=== PATIENT | male | born 1965 | race African-American/Black ===

== ENCOUNTER 2016-11-10 10:36 | Inpatient (IN) | payer BC ==
[2016-11-10 11:44] VITALS: BMI 30.7
--- NOTE | 2016-11-10 15:30 | HP ---
CIWA Score - CIWA Score Nausea/Vomitin Muscle Tremors: 3 Anxiety: 3 Agitation: 3 Paroxysmal Sweats: 2 Orientation: 0-Oriented Tacttile Disturbances: 2-Mild Itch/Numbness/Burn Auditory Disturbances: 2-Mild Harshness/Frighten Visual Disturbances: 2-Mild Sensitivity Headache: 2-Mild CIWA-Ar Total Score: 22 Admission ROS [facility] - HPI Chief Complaint: I NEED HELP TO STOP DRINKING ALCOHOL,COCAINE,HEROINE DEPENDENCE Allergies/Adverse Reactions: Allergies Allergy/AdvReac Type Severity Reaction Status Date / Time No Known Allergies Allergy Verified 11/10/16 13:06 History of Present Illness: THIS 51 YEARS OLD MALE WITH ALCOHOL AND COCAINE DEPENDENCE WITH HEROIN DEPENDENCE,WITHDRAWAL SYMPTOM,LAST DETOX 07/12/16 TO 07/16/16 S/P RIGHT HIP REPLACEMENT IN 2010 OSTEOMYELITIS OF RIGHT HIP SINCE 2013 CANE AMBULATION FOLLOW UP WITH [facility] PERIOD OF SOBRIETY 2 YEARS NEEDED HELP TO CLEAN UP BEFORE SURGERY Exam Limitations: No Limitations - Ebola screening Have you traveled outside of the country in the last 21 days: No (N) Have you had contact with anyone from an Ebola affected area: No Have you been sick,other than usual withdrawal symptoms: No Do you have a fever: No - Review of Systems Constitutional: Chills, Loss of Appetite, Malaise, Night Sweats, Changes in sleep, Weakness EENT: reports: Nose Congestion Respiratory: reports: No Symptoms reported Cardiac: reports: No Symptoms Reported GI: reports: Nausea, Poor Appetite, Abdominal cramping : reports: No Symptoms Reported Musculoskeletal: reports: Back Pain, Joint Pain, Muscle Pain Neuro: reports: Tremors Endocrine: reports: No Symptoms Reported Hematology: reports: No Symptoms Reported Psychiatric: reports: Depressed (INSOMNIA) Patient History - Patient Medical History Hx Anemia: Yes (USED TO TAKE IRON PILL) Hx Asthma: No Hx Chronic Obstructive Pulmonary Disease (COPD): No Hx Cancer: No Hx Cardiac Disorders: No Hx Congestive Heart Failure: No Hx Hypertension: Yes (NON COMPLIACE) Hx Hypercholesterolemia: No Hx Pacemaker: No HX Cerebrovascular Accident: No Hx Seizures: No Hx Dementia: No Hx Diabetes: No Hx Gastrointestinal Disorders: Yes (Acid reflux) Hx Liver Disease: No Hx Genitourinary Disorders: No Hx Sexually Transmitted Disorders: No Hx Renal Disease (ESRD): No Hx Thyroid Disease: No Hx Human Immunodeficiency Virus (HIV): No Hx Hepatitis C: No Hx Depression: Yes (INSOMNIA) Hx Suicide Attempt: No Hx Bipolar Disorder: No Hx Schizophrenia: No Other Medical History: NO SUICIDAL,NO HOMICIDAL.S/P RIGHT HIP REPLACEMENT, OSTEOMYELITIS,CANE AMBUL - Patient Surgical History Past Surgical History: Yes Hx Neurologic Surgery: No Hx Cataract Extraction: No Hx Cardiac Surgery: No Hx Lung Surgery: No Hx Breast Surgery: No Hx Breast Biopsy: No Hx Abdominal Surgery: No Hx Appendectomy: No Hx Cholecystectomy: No Hx Genitourinary Surgery: No Hx Section: No Hx Orthopedic Surgery: Yes (right hip replacement 2011, revision 2013, chronic infection) Other Surgical History: CHRONIC DRANING WOUND RT. HIP Anesthesia Reaction: No - PPD History Previous Implant?: Yes Documented Results: Negative w/o proof Date: 09/06/15 Results: 0 mm PPD to be Administered?: Yes - Smoking Cessation Smoking history: Current every day smoker Have you smoked in the past 12 months: Yes Aproximately how many cigarettes per day: 20 Hx Chewing Tobacco Use: No Initiated information on smoking cessation: Yes 'Breaking Loose' booklet given: 11/10/16 - Substance & Tx. History Hx Alcohol Use: Yes Hx Substance Use: Yes Substance Use Type: Alcohol, Cocaine, Heroin Hx Substance Use Treatment: Yes ([facility] 07/12/16 TO 07/16/16) - Substances Abused Alcohol Route: Oral Frequency: Daily Amount used: 2 pints liquor, (2) 6 pack of 12oz Beer Age of first use: 15 Date of Last Use: 11/09/16 Heroin Route: Smoking Frequency: Daily Amount used: $100 Age of first use: 15 Date of Last Use: 11/09/16 Cocaine Route: Smoking Frequency: Daily Amount used: 20$ Age of first use: 15 Date of Last Use: 11/10/16 Family Disease History - Family Disease History Family Disease History: Heart Disease: Mother (HTN,ALCOHOL,), Sister ( HTN,ALCOHOL), [place]: Mother Admission Physical Exam [facility] - Vital Signs Vital Signs: Vital Signs - 24 hr 11/10/16 11:42 Temperature 97.6 F Pulse Rate 77 Respiratory 20 Rate Blood Pressure 109/77 - Physical General Appearance: Yes: Moderate Distress, Tremorous, Irritable, Sweating, Anxious HEENTM: Yes: Nasal Congestion Respiratory: Yes: Lungs Clear Neck: Yes: Within Normal Limits Breast: Yes: Within Normal Limits Abdominal: Yes: Within Normal Limits, Normal Bowel Sounds, Non Tender, Flat, Soft Genitourinary: Yes: Within Normal Limits Back: Yes: Muscle Spasm Extremities: Yes: Tremors Neurological: Yes: big data analytics lead II-XII NML intact, Fully Oriented, Alert, Motor Strength 5/5 Integumentary: Yes: Dry, Other (DRAINAGE FROMRIGHT HIP) Lymphatic: Yes: Within Normal Limits - Diagnostic (1) Open wound of right hip and thigh Current Visit: No Status: Acute Qualifiers: Encounter type: subsequent encounter Qualified Code(s): S71.001D - Unspecified open wound, right hip, subsequent encounter; S71.101D - Unspecified open wound, right thigh, subsequent encounter (2) Opioid dependence with withdrawal Current Visit: No Status: Acute (3) Alcohol dependence with uncomplicated withdrawal Current Visit: No Status: Chronic (4) Chronic right hip pain Current Visit: No Status: Chronic (5) Cocaine dependence Current Visit: No Status: Chronic Qualifiers: Substance use status: uncomplicated Qualified Code(s): F14.20 - Cocaine dependence, uncomplicated (6) HTN (hypertension) Current Visit: No Status: Chronic Qualifiers: Hypertension type: essential hypertension Qualified Code(s): I10 - Essential (primary) hypertension (7) Nicotine dependence Current Visit: No Status: Chronic Qualifiers: Nicotine product type: cigarettes Substance use status: uncomplicated Qualified Code(s): F17.210 - Nicotine dependence, cigarettes, uncomplicated (8) Status post right hip replacement Current Visit: No Status: Chronic (9) Depression Current Visit: Yes Status: Acute (10) Use of cane as ambulatory aid Current Visit: Yes Status: Acute Cleared for Admission [facility] - Detox or Rehab [facility] Level of Care: Medically Managed Detox Regimen/Protocol: Methadone/Librium [facility] Breath Alcohol Content Breath Alcohol Content: 0 Urine Drug Screen - Results Drug Screen Negative: No Urine Drug Screen Results: LLUVIA-Cocaine, OPI-Opiates
[2016-11-10] MEDS ORDERED: NICOTINE POLACRILEX 2 MG GUM BUC PRN (15:40)
[2016-11-10] MEDS ORDERED: MAGNESIUM HYDROX 2400MG/30ML ORAL SUSPENSION 30 ML CUP PO PRN (15:40)
[2016-11-10] MEDS ORDERED: MAGNESIUM CITRATE 300 ML BOTTLE PO PRN (15:40)
[2016-11-10] MEDS ORDERED: chlordiazePOXIDE HCL 25 MG CAPSULE PO PRN (15:40)
[2016-11-10] MEDS ORDERED: MENTHOL/PHENOL 1 EACH UD MM PRN (15:40)
[2016-11-10] MEDS ORDERED: LOPERAMIDE HCL 2 MG CAPSULE PO PRN (15:40)
[2016-11-10] MEDS ORDERED: hydrOXYzine PAMOATE 25 MG CAPSULE (FP) PO PRN (15:40)
[2016-11-10] MEDS ORDERED: guaiFENesin/D-METHORPHAN HB 10 ML UNIT-DOSE CUPS PO PRN (15:40)
[2016-11-10] MEDS ORDERED: MAG HYDROX/AL HYDROX/SIMETH 30 ML UNIT-DOSE CUP PO PRN (15:40)
[2016-11-10] MEDS ORDERED: P-EPHED 60MG/TRIPROLIDI 2.5MG TABLET PO PRN (15:40)
[2016-11-10] MEDS ORDERED: chlordiazePOXIDE HCL 25 MG CAPSULE PO ONE (15:49)
[2016-11-10] MEDS ORDERED: ACETAMINOPHEN 325 MG TABLET (FP) PO PRN (15:50)
[2016-11-10] MEDS ORDERED: METHADONE HCL 10 MG TABLET (FOR DETOX USE ONLY) PO ONE ×2 (15:52→23:00)
[2016-11-10] MEDS: chlordiazePOXIDE HCL 25 MG CAPSULE PO SCH ×2 (16:57→22:25)
[2016-11-10 18:16] LABS: URINE APPEARANCE CLEAR; URINE BILIRUBIN NEGATIVE (NEGATIVE); URINE BLOOD NEGATIVE (NEGATIVE); URINE COLOR LTYELLOW; URINE GLUCOSE (UA) NEGATIVE (NEGATIVE); URINE KETONE NEGATIVE (NEGATIVE); URINE LEUK ESTERASE NEGATIVE (NEGATIVE); URINE NITRITE NEGATIVE (NEGATIVE); URINE PROTEIN NEGATIVE (NEGATIVE); URINE UROBILINOGEN NEGATIVE E.U./dl (0.2-1.0)
[2016-11-10] MEDS: diphenhydrAMINE HCL 50 MG CAPSULE PO PRN (22:25)
[2016-11-10] MEDS: THIAMINE HCL 100 MG TABLET (FP) PO SCH (22:25)
[2016-11-11] MEDS: chlordiazePOXIDE HCL 25 MG CAPSULE PO SCH ×4 (06:02→22:20)
[2016-11-11] MEDS ORDERED: METHADONE HCL 10 MG TABLET (FOR DETOX USE ONLY) PO SCH (10:00)
[2016-11-11 10:16] LABS: MCH 25.9 pg (25.7-33.7); MCHC 32.3 g/dl (32.0-35.9); MEAN CELL VOLUME 80.2 fl (80-96); MEAN PLT VOLUME 9.9 fl (7.5-11.1); PLATELET COUNT 210 K/MM3 (134-434); RDW 17.9 % (11.9-15.9); WHITE BLOOD COUNT 7.5 K/mm3 (4.0-10.0)
[2016-11-11] MEDS: SILVER SULFADIAZINE 1% TOP CREAM 50 GM JAR TP SCH (10:23)
[2016-11-11] MEDS: PRENATAL VITAMINS W/ FOLIC ACID TABLET (FP) PO SCH (10:23)
[2016-11-11 10:40] LABS: ALBUMIN 3.2 g/dl (3.4-5.0); ALK PHOS 85 U/L (45-117); ANION GAP 11 (8-16); BILIRUBIN,TOTAL 0.2 mg/dL (0.2-1.0); CALCIUM 8.8 mg/dL (8.5-10.1); CO2 25 mmol/L (21-32); CREATININE 1.1 mg/dL (0.7-1.3); GLUCOSE,RANDOM 72 mg/dL (74-106); SGOT/AST 12 U/L (15-37); SGPT/ALT 15 U/L (12-78); TOT PROT 7.8 g/dl (6.4-8.2)
--- NOTE | 2016-11-11 11:07 | PN ---
[facility] CIWA - CIWA Score Nausea/Vomitin-No Nausea/No Vomiting Muscle Tremors: 4-Moderate,w/Arms Extend Anxiety: 4-Mod. Anxious/Guarded Agitation: 4-Moderately Restless Paroxysmal Sweats: 1-Minimal Palms Moist Orientation: 0-Oriented Tacttile Disturbances: 3-Moderate Itch/Numb/Burn Auditory Disturbances: 0-None Visual Disturbances: 0-None Headache: 0-None Present CIWA-Ar Total Score: 16 S Progress Note (SOAP) Subjective: ANXIETY,SWEATS,TREMORS. Objective: 11/11/16 11:06 Vital Signs Temperature 97.2 F L 11/11/16 06:43 Pulse Rate 75 11/11/16 06:43 Respiratory Rate 16 11/11/16 06:43 Blood Pressure 99/69 11/11/16 06:43 O2 Sat by Pulse Oximetry (%) Laboratory Last Values WBC 7.5 K/mm3 (4.0-10.0) 11/11/16 08:00 RBC 4.88 M/mm3 (4.00-5.60) 11/11/16 08:00 Hgb 12.6 GM/dL (11.7-16.9) D 11/11/16 08:00 Hct 39.1 % (35.4-49) 11/11/16 08:00 MCV 80.2 fl (80-96) 11/11/16 08:00 MCHC 32.3 g/dl (32.0-35.9) 11/11/16 08:00 RDW 17.9 % (11.9-15.9) H 11/11/16 08:00 Plt Count 210 K/MM3 (134-434) 11/11/16 08:00 MPV 9.9 fl (7.5-11.1) 11/11/16 08:00 Sodium 141 mmol/L (136-145) 11/11/16 08:00 Potassium 4.5 mmol/L (3.5-5.1) 11/11/16 08:00 Chloride 105 mmol/L (98-107) 11/11/16 08:00 Carbon Dioxide 25 mmol/L (21-32) 11/11/16 08:00 Anion Gap 11 (8-16) 11/11/16 08:00 BUN 11 mg/dL (7-18) 11/11/16 08:00 Creatinine 1.1 mg/dL (0.7-1.3) D 11/11/16 08:00 Creat Clearance w eGFR > 60 (>60) 11/11/16 08:00 Random Glucose 72 mg/dL (74-106) L 11/11/16 08:00 Calcium 8.8 mg/dL (8.5-10.1) 11/11/16 08:00 Total Bilirubin 0.2 mg/dL (0.2-1.0) 11/11/16 08:00 AST 12 U/L (15-37) L 11/11/16 08:00 ALT 15 U/L (12-78) 11/11/16 08:00 Alkaline Phosphatase 85 U/L (45-117) D 11/11/16 08:00 Total Protein 7.8 g/dl (6.4-8.2) 11/11/16 08:00 Albumin 3.2 g/dl (3.4-5.0) L 11/11/16 08:00 Urine Color Ltyellow 11/10/16 17:00 Urine Appearance Clear 11/10/16 17:00 Urine pH 6.0 (5.0-8.0) 11/10/16 17:00 Ur Specific [place] 1.013 (1.001-1.035) 11/10/16 17:00 Urine Protein Negative (NEGATIVE) 11/10/16 17:00 Urine Glucose (UA) Negative (NEGATIVE) 11/10/16 17:00 Urine Ketones Negative (NEGATIVE) 11/10/16 17:00 Urine Blood Negative (NEGATIVE) 11/10/16 17:00 Urine Nitrite Negative (NEGATIVE) 11/10/16 17:00 Urine Bilirubin Negative (NEGATIVE) 11/10/16 17:00 Urine Urobilinogen Negative E.U./dl (0.2-1.0) 11/10/16 17:00 Ur Leukocyte Esterase Negative (NEGATIVE) 11/10/16 17:00 Assessment: 11/11/16 11:06 WITHDRAWAL SX Plan: CONTINUE DETOX
[2016-11-11 11:45] LABS: HIV 1 & 2 AB NEGATIVE; HIV 1 AGp24 NEGATIVE
--- NOTE | 2016-11-11 13:22 | CONSULT ---
[facility] Psychiatric Consult - Data Date of interview: 11/11/16 Admission source: [facility] Identifying data: Readmission to [facility] for this 51 y/o AA male seeking detox treatment on for alcohol,cocaine and heroin dependence.Patient is single without children,homeless,disabled and supported on Public Assistance. Substance Abuse History: - Smoking Cessation. Smoking history: Current every day smoker. Have you smoked in the past 12 months: Yes. Aproximately how many cigarettes per day: 20. Hx Chewing Tobacco Use: No. Initiated information on smoking cessation: Yes. 'Breaking Loose' booklet given: 11/10/16. - Substance & Tx. History. Hx Alcohol Use: Yes. Hx Substance Use: Yes. Substance Use Type : Alcohol, Cocaine, Heroin. Hx Substance Use Treatment: Yes ([facility] 07/12/16 TO 07/16/16). - Substances Abused. Alcohol. Route: Oral. Frequency: Daily. Amount used: 2 pints liquor, (2) 6 pack of 12oz Beer. Age of first use: 15. Date of Last Use: 11/09/16. Heroin. Route: Smoking. Frequency: Daily. Amount used: $100. Age of first use: 15. Date of Last Use: 11/09/16. Cocaine. Route: Smoking. Frequency: Daily. Amount used: 20$. Age of first use: 15. Date of Last Use: 11/10/16. Confirmed by patient in this interview. Medical History: Hypertension,anemia,GERD and osteomyelitis of right hip ( replacement in 2013). Psychiatric History: Reported history of four psychiatric admissions to [facility].Diagnosed with MDD.Patient remebers seroquel but he could not recall the name of his antidepressant medication.OPD care is provided at the [facility] health clinic.Mr Barnes denies history of suicide attempts. Physical/Sexual Abuse/Trauma History: Patient denies. Additional Comment: Urine Drug Screen Results: LLUVIA-Cocaine, OPI-Opiates.Noted. Mental Status Exam - Mental Status Exam Alert and Oriented to: Time, Place, Person Cognitive Function: Good Patient Appearance: Well Groomed Mood: Withdrawn, Hopeful Affect: Mood Congruent Patient Behavior: Passive, Appropriate, Cooperative Speech Pattern: Clear Voice Loudness: Normal Thought Process: Goal Oriented Thought Disorder: Not Present Hallucinations: Denies Suicidal Ideation: Denies Homicidal Ideation: Denies Insight/Judgement: Poor Sleep: Poorly, Difficulty falling asleep Appetite: Good Muscle strength/Tone: Normal (no complaint of weakness) Gait/Station: Other (ambulates with a cane) Psychiatric Findings - Problem List ([place] 1, 2,3) (1) Opioid dependence with withdrawal Current Visit: Yes Status: Acute (2) Alcohol dependence with uncomplicated withdrawal Current Visit: Yes Status: Chronic (3) Cocaine dependence Current Visit: Yes Status: Chronic Qualifiers: Substance use status: uncomplicated Qualified Code(s): F14.20 - Cocaine dependence, uncomplicated (4) Nicotine dependence Current Visit: Yes Status: Acute Qualifiers: Nicotine product type: cigarettes Substance use status: uncomplicated Qualified Code(s): F17.210 - Nicotine dependence, cigarettes, uncomplicated (5) Drug-induced mood disorder Current Visit: Yes Status: Acute (6) Depressive disorder Current Visit: Yes Status: Suspected (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 Current Visit: Yes Status: Chronic (8) Chronic right hip pain Current Visit: Yes Status: Chronic (9) HTN (hypertension) Current Visit: Yes Status: Chronic Qualifiers: Hypertension type: essential hypertension Qualified Code(s): I10 - Essential (primary) hypertension (10) Open wound of right hip Current Visit: Yes Status: Chronic Qualifiers: Encounter type: subsequent encounter Qualified Code(s): S71.001D - Unspecified open wound, right hip, subsequent encounter - Initial Treatment Plan Initial Treatment Plan: Psychoeducation.detoxification.Medications : seroquel 100 mg po hs.Side effects/benefits discussed with the patient.Made aware of risk of oversedation/falls,metabolic syndrome and involuntary movements.He agrees with this plan.Observation.
--- NOTE | 2016-11-11 21:36 | EKG ---
Test Reason : Blood Pressure : / mmHG Vent. Rate : 075 BPM Atrial Rate : 075 BPM P-R Int : 132 ms QRS Dur : 088 ms QT Int : 356 ms P-R-T Axes : 050 067 056 degrees QTc Int : 397 ms NORMAL SINUS RHYTHM NORMAL ECG NO PREVIOUS ECGS AVAILABLE Confirmed by RYDER ROSALES MD ([id number]) on 11/11/2016 9:35:49 PM Referred By: Confirmed By:RYDER ROSALES MD
[2016-11-11] MEDS ORDERED: QUEtiapine FUMARATE 100 MG TABLET (FP) PO SCH (22:00)
[2016-11-11] MEDS: THIAMINE HCL 100 MG TABLET (FP) PO SCH (22:20)
[2016-11-12] MEDS: chlordiazePOXIDE HCL 25 MG CAPSULE PO SCH ×2 (06:00→10:31)
[2016-11-12] MEDS: METHADONE HCL 5 MG TABLET (FOR DETOX USE ONLY) PO SCH (10:31)
[2016-11-12] MEDS: PRENATAL VITAMINS W/ FOLIC ACID TABLET (FP) PO SCH (10:31)
[2016-11-12] MEDS: SILVER SULFADIAZINE 1% TOP CREAM 50 GM JAR TP SCH (10:32)
--- NOTE | 2016-11-12 11:24 | PN ---
[facility] CIWA - CIWA Score Nausea/Vomitin-No Nausea/No Vomiting Muscle Tremors: 4-Moderate,w/Arms Extend Anxiety: 4-Mod. Anxious/Guarded Agitation: 4-Moderately Restless Paroxysmal Sweats: 1-Minimal Palms Moist Orientation: 0-Oriented Tacttile Disturbances: 3-Moderate Itch/Numb/Burn Auditory Disturbances: 0-None Visual Disturbances: 0-None Headache: 0-None Present CIWA-Ar Total Score: 16 S Progress Note (SOAP) Subjective: ANXIETY,SWEATS,BACK PAIN,VERY DROWSY WITH SLIGHT DISORIENTATION. Objective: 11/12/16 11:24 Vital Signs Temperature 98.8 F 11/12/16 10:49 Pulse Rate 91 H 11/12/16 10:49 Respiratory Rate 18 11/12/16 10:49 Blood Pressure 99/74 11/12/16 10:49 O2 Sat by Pulse Oximetry (%) Laboratory Last Values WBC 7.5 K/mm3 (4.0-10.0) 11/11/16 08:00 RBC 4.88 M/mm3 (4.00-5.60) 11/11/16 08:00 Hgb 12.6 GM/dL (11.7-16.9) D 11/11/16 08:00 Hct 39.1 % (35.4-49) 11/11/16 08:00 MCV 80.2 fl (80-96) 11/11/16 08:00 MCHC 32.3 g/dl (32.0-35.9) 11/11/16 08:00 RDW 17.9 % (11.9-15.9) H 11/11/16 08:00 Plt Count 210 K/MM3 (134-434) 11/11/16 08:00 MPV 9.9 fl (7.5-11.1) 11/11/16 08:00 Sodium 141 mmol/L (136-145) 11/11/16 08:00 Potassium 4.5 mmol/L (3.5-5.1) 11/11/16 08:00 Chloride 105 mmol/L (98-107) 11/11/16 08:00 Carbon Dioxide 25 mmol/L (21-32) 11/11/16 08:00 Anion Gap 11 (8-16) 11/11/16 08:00 BUN 11 mg/dL (7-18) 11/11/16 08:00 Creatinine 1.1 mg/dL (0.7-1.3) D 11/11/16 08:00 Creat Clearance w eGFR > 60 (>60) 11/11/16 08:00 Random Glucose 72 mg/dL (74-106) L 11/11/16 08:00 Calcium 8.8 mg/dL (8.5-10.1) 11/11/16 08:00 Total Bilirubin 0.2 mg/dL (0.2-1.0) 11/11/16 08:00 AST 12 U/L (15-37) L 11/11/16 08:00 ALT 15 U/L (12-78) 11/11/16 08:00 Alkaline Phosphatase 85 U/L (45-117) D 11/11/16 08:00 Total Protein 7.8 g/dl (6.4-8.2) 11/11/16 08:00 Albumin 3.2 g/dl (3.4-5.0) L 11/11/16 08:00 Urine Color Ltyellow 11/10/16 17:00 Urine Appearance Clear 11/10/16 17:00 Urine pH 6.0 (5.0-8.0) 11/10/16 17:00 Ur Specific [place] 1.013 (1.001-1.035) 11/10/16 17:00 Urine Protein Negative (NEGATIVE) 11/10/16 17:00 Urine Glucose (UA) Negative (NEGATIVE) 11/10/16 17:00 Urine Ketones Negative (NEGATIVE) 11/10/16 17:00 Urine Blood Negative (NEGATIVE) 11/10/16 17:00 Urine Nitrite Negative (NEGATIVE) 11/10/16 17:00 Urine Bilirubin Negative (NEGATIVE) 11/10/16 17:00 Urine Urobilinogen Negative E.U./dl (0.2-1.0) 11/10/16 17:00 Ur Leukocyte Esterase Negative (NEGATIVE) 11/10/16 17:00 RPR Titer Nonreactive (NONREACTIVE) 11/11/16 08:00 HIV 1&2 Antibody Screen Negative 11/11/16 08:00 HIV P24 Antigen Negative 11/11/16 08:00 Assessment: 11/12/16 11:24 WITHDRAWAL SX Plan: CONTINUE DETOX AMMONIA LEVEL ORDERED CASE DISCUSSED WITH PSYCH LIBRIUM DOSES ON HOLD FOR 11:00 AM AND 5:00 PM TODAY LIBRIUM TO BE RE-EVALUATED ON DEMAND.
--- NOTE | 2016-11-12 19:39 | PN ---
[facility] Progress Note Note: Psychiatry Attending's note : Patient seen at bedside.earlier today. Appeared sedated.He reported feeling drowsy and unsteady. Seroquel was immediately discontinued. Mr Barnes was again approached around 5 PM. Improved mental status.Spoke clearly.Able to execute simple commands. Fully aware of his whereabouts.Detox regimen is modified. Ammonia level sent.Discussed with [facility]ADEMIC DEAN Diane Matias. Will follow.
[2016-11-12] MEDS: THIAMINE HCL 100 MG TABLET (FP) PO SCH (22:27)
[2016-11-12] MEDS: chlordiazePOXIDE 5 MG CAPSULE PO SCH (23:04)
[2016-11-13] MEDS: chlordiazePOXIDE 5 MG CAPSULE PO SCH ×2 (06:07→11:42)
[2016-11-13] MEDS: PRENATAL VITAMINS W/ FOLIC ACID TABLET (FP) PO SCH (10:55)
[2016-11-13] MEDS: METHADONE HCL 5 MG TABLET (FOR DETOX USE ONLY) PO SCH (10:55)
[2016-11-13] MEDS: SILVER SULFADIAZINE 1% TOP CREAM 50 GM JAR TP SCH (10:55)
--- NOTE | 2016-11-13 11:13 | PN ---
[facility] Progress Note (SOAP) Subjective: MORE ALERT AND VERBAL TODAY. DOES NOT REMEMBER MUCH OF HIS DISORIENTATION YESTERDAY. ALERT O X 3. ENGAGING IN NORMAL VERBAL COMMUNICATION WITH [employer] TODAY. Objective: 11/13/16 11:12 Vital Signs Temperature 96.7 F L 11/13/16 10:04 Pulse Rate 103 H 11/13/16 10:04 Respiratory Rate 18 11/13/16 10:04 Blood Pressure 126/83 11/13/16 10:04 O2 Sat by Pulse Oximetry (%) AMMONIA LEVEL= 55.18 Assessment: 11/13/16 11:13 WITHDRAWAL SX Plan: CONTINUED DETOX LACTULOSE DIRECTED
[2016-11-13] MEDS: IBUPROFEN 400 MG TABLET (FP) PO PRN ×2 (11:35→21:16)
[2016-11-13] MEDS: chlordiazePOXIDE HCL 10 MG CAPSULE PO SCH ×2 (17:34→22:27)
[2016-11-13] MEDS: LACTULOSE 20 GM/30 ML UDC (FOR ORAL USE ONLY) PO SCH (22:27)
[2016-11-13] MEDS: THIAMINE HCL 100 MG TABLET (FP) PO SCH (22:27)
[2016-11-13] MEDS: diphenhydrAMINE HCL 50 MG CAPSULE PO PRN (22:28)
[2016-11-14] MEDS: diphenhydrAMINE HCL 50 MG CAPSULE PO PRN ×2 (00:41→22:50)
[2016-11-14] MEDS: chlordiazePOXIDE HCL 10 MG CAPSULE PO SCH ×2 (05:59→10:40)
[2016-11-14] MEDS ORDERED: METHADONE HCL 10 MG TABLET (FOR DETOX USE ONLY) PO SCH (10:00)
[2016-11-14] MEDS: PRENATAL VITAMINS W/ FOLIC ACID TABLET (FP) PO SCH (10:40)
[2016-11-14] MEDS: SILVER SULFADIAZINE 1% TOP CREAM 50 GM JAR TP SCH (10:41)
[2016-11-14] MEDS: LACTULOSE 20 GM/30 ML UDC (FOR ORAL USE ONLY) PO SCH ×2 (10:41→22:50)
--- NOTE | 2016-11-14 11:10 | PN ---
[facility] Progress Note (SOAP) Subjective: DECREASED ANXIETY, SWEATS, TREMORS. ALERT O X 3. Objective: 11/14/16 11:09 Vital Signs Temperature 98.2 F 11/14/16 10:50 Pulse Rate 83 11/14/16 10:50 Respiratory Rate 20 11/14/16 10:50 Blood Pressure 101/75 11/14/16 10:50 O2 Sat by Pulse Oximetry (%) Assessment: 11/14/16 11:09 DECREASED WITHDRAWAL SX Plan: CONTINUE DETOX
[2016-11-14] MEDS: THIAMINE HCL 100 MG TABLET (FP) PO SCH (22:50)
[2016-11-15] MEDS: IBUPROFEN 400 MG TABLET (FP) PO PRN (05:11)
[2016-11-15] MEDS ORDERED: METHADONE HCL 5 MG TABLET (FOR DETOX USE ONLY) PO SCH (06:00)
[2016-11-15 06:54] VITALS: BP 111/76; PULSE 96; TEMP 98.7
--- NOTE | 2016-11-15 10:24 | DS ---
[facility] Detox Discharge Summary Admission Date: 11/10/16 Discharge Date: 11/15/16 - History Present History: Alcohol Dependence, Cocaine Dependence, Opioid Dependence Pertinent Past History: HTN Smoker Chronic Right Hip Wound - Physical Exam Results Vital Signs: Vital Signs Temperature 98.7 F 11/15/16 06:53 Pulse Rate 96 H 11/15/16 06:53 Respiratory Rate 18 11/15/16 06:53 Blood Pressure 111/76 11/15/16 06:53 O2 Sat by Pulse Oximetry (%) Laboratory Last Values WBC 7.5 K/mm3 (4.0-10.0) 11/11/16 08:00 RBC 4.88 M/mm3 (4.00-5.60) 11/11/16 08:00 Hgb 12.6 GM/dL (11.7-16.9) D 11/11/16 08:00 Hct 39.1 % (35.4-49) 11/11/16 08:00 MCV 80.2 fl (80-96) 11/11/16 08:00 MCHC 32.3 g/dl (32.0-35.9) 11/11/16 08:00 RDW 17.9 % (11.9-15.9) H 11/11/16 08:00 Plt Count 210 K/MM3 (134-434) 11/11/16 08:00 MPV 9.9 fl (7.5-11.1) 11/11/16 08:00 Sodium 141 mmol/L (136-145) 11/11/16 08:00 Potassium 4.5 mmol/L (3.5-5.1) 11/11/16 08:00 Chloride 105 mmol/L (98-107) 11/11/16 08:00 Carbon Dioxide 25 mmol/L (21-32) 11/11/16 08:00 Anion Gap 11 (8-16) 11/11/16 08:00 BUN 11 mg/dL (7-18) 11/11/16 08:00 Creatinine 1.1 mg/dL (0.7-1.3) D 11/11/16 08:00 Creat Clearance w eGFR > 60 (>60) 11/11/16 08:00 Random Glucose 72 mg/dL (74-106) L 11/11/16 08:00 Calcium 8.8 mg/dL (8.5-10.1) 11/11/16 08:00 Total Bilirubin 0.2 mg/dL (0.2-1.0) 11/11/16 08:00 AST 12 U/L (15-37) L 11/11/16 08:00 ALT 15 U/L (12-78) 11/11/16 08:00 Alkaline Phosphatase 85 U/L (45-117) D 11/11/16 08:00 Ammonia 55.18 umol/L (11-32) H 11/12/16 11:40 Total Protein 7.8 g/dl (6.4-8.2) 11/11/16 08:00 Albumin 3.2 g/dl (3.4-5.0) L 11/11/16 08:00 Urine Color Ltyellow 11/10/16 17:00 Urine Appearance Clear 11/10/16 17:00 Urine pH 6.0 (5.0-8.0) 11/10/16 17:00 Ur Specific [place] 1.013 (1.001-1.035) 11/10/16 17:00 Urine Protein Negative (NEGATIVE) 11/10/16 17:00 Urine Glucose (UA) Negative (NEGATIVE) 11/10/16 17:00 Urine Ketones Negative (NEGATIVE) 11/10/16 17:00 Urine Blood Negative (NEGATIVE) 11/10/16 17:00 Urine Nitrite Negative (NEGATIVE) 11/10/16 17:00 Urine Bilirubin Negative (NEGATIVE) 11/10/16 17:00 Urine Urobilinogen Negative E.U./dl (0.2-1.0) 11/10/16 17:00 Ur Leukocyte Esterase Negative (NEGATIVE) 11/10/16 17:00 RPR Titer Nonreactive (NONREACTIVE) 11/11/16 08:00 HIV 1&2 Antibody Screen Negative 11/11/16 08:00 HIV P24 Antigen Negative 11/11/16 08:00 labs noted - Treatment Hospital Course: Detox Protocol Followed, Detoxed Safely, Responded well, Discharged Condition Good - Medication Discharge Medications: Ambulatory Orders Docusate Sodium [Colace -] 100 mg PO BID #60 capsule 04/10/16 Ferrous Sulfate [Feosol] 325 mg PO TID #90 tablet 04/10/16 Ranitidine HCl [Zantac] 150 mg PO BID #60 tablet 04/10/16 Amlodipine Besylate [Norvasc -] 10 mg PO DAILY 07/12/16 Quetiapine Fumarate [Seroquel] 100 tab PO HS #30 tablet 07/14/16 - Diagnosis (1) Depression Status: Acute (2) Drug-induced mood disorder Status: Acute (3) Nicotine dependence Status: Acute Qualifiers: Nicotine product type: cigarettes Substance use status: uncomplicated Qualified Code(s): F17.210 - Nicotine dependence, cigarettes, uncomplicated (4) Open wound of right hip and thigh Status: Acute Qualifiers: Encounter type: subsequent encounter Qualified Code(s): S71.001D - Unspecified open wound, right hip, subsequent encounter; S71.101D - Unspecified open wound, right thigh, subsequent encounter (5) Opioid dependence with withdrawal Status: Acute (6) Use of cane as ambulatory aid Status: Acute (7) Alcohol dependence with uncomplicated withdrawal Status: Chronic (8) Chronic infection of hip joint prosthesis Status: Chronic (9) Chronic right hip pain Status: Chronic (10) Cocaine dependence Status: Chronic Qualifiers: Substance use status: uncomplicated Qualified Code(s): F14.20 - Cocaine dependence, uncomplicated (11) HTN (hypertension) Status: Chronic Qualifiers: Hypertension type: essential hypertension Qualified Code(s): I10 - Essential (primary) hypertension (12) Open wound of right hip Status: Chronic Qualifiers: Encounter type: subsequent encounter Qualified Code(s): S71.001D - Unspecified open wound, right hip, subsequent encounter (13) Status post right hip replacement Status: Chronic (14) Depressive disorder Status: Suspected - AMA Did Patient Leave Against Medical Advice: No
== END 2016-11-15 08:58 | disposition home or self-care (01) | DRG 773 ==
LOC: YASAS 10:36 → Y3N 13:34
PROVIDERS: ADMIT Internal Medicine; ATTEND Internal Medicine
PROC: HZ2ZZZZ Detoxification Services for Substance Abuse Treatment (ICD-10-PCS; principal; 2016-11-10)
DX: F11.23 Opioid dependence with withdrawal (principal); F10.230 Alcohol dependence with withdrawal, uncomplicated; F14.20 Cocaine dependence, uncomplicated; F17.210 Nicotine dependence, cigarettes, uncomplicated; F19.24 Other psychoactive substance dependence with psychoactive substance-induced mood disorder; F32.9 Major depressive disorder, single episode, unspecified; I10 Essential (primary) hypertension; K21.9 Gastro-esophageal reflux disease without esophagitis; R26.2 Difficulty in walking, not elsewhere classified; M86.9 Osteomyelitis, unspecified; G47.00 Insomnia, unspecified; Z86.2 Personal history of diseases of the blood and blood-forming organs and certain disorders involving the immune mechanism; Z91.14 Patient's other noncompliance with medication regimen; Z96.641 Presence of right artificial hip joint; S71.001D Unspecified open wound, right hip, subsequent encounter; S71.011D Laceration without foreign body, right hip, subsequent encounter; X58.XXXD Exposure to other specified factors, subsequent encounter
CPT/HCPCS: 36415; 80053; 81003; 82140; 85027; 86593; 87389; 93005; 93010

== ENCOUNTER 2018-06-13 09:13 | Inpatient (IN) | payer OTHER ==
[2018-06-13 10:38] VITALS: BMI 32.2
--- NOTE | 2018-06-13 13:47 | HP ---
CIWA Score - CIWA Score Nausea/Vomitin Muscle Tremors: 3 Anxiety: 3 Agitation: 2 Paroxysmal Sweats: 3 Orientation: 0-Oriented Tacttile Disturbances: 0-None Auditory Disturbances: 0-None Visual Disturbances: 0-None Headache: 0-None Present CIWA-Ar Total Score: 14 Admission ROS S - HPI Chief Complaint: "I am here to get clean" Allergies/Adverse Reactions: Allergies Allergy/AdvReac Type Severity Reaction Status Date / Time No Known Allergies Allergy Verified 06/13/18 11:34 History of Present Illness: 52 y/o male with a long hx of alcohol addiction presents here for detox. Pt is known to this center, last here last year. Pt is wheel chair bound because he states he has "no hip", states he is able to perform his ADLs. Noted to be wheeling self. Endorses an 18 month period of sobriety from 2008 - 2011 when he was in custodial. Hx of HTN. Denies any psych hx and declines psych consult. Denies past nor current hx. Exam Limitations: No Limitations - Ebola screening Have you traveled outside of the country in the last 21 days: No Have you had contact with anyone from an Ebola affected area: No Have you been sick,other than usual withdrawal symptoms: No Do you have a fever: No - Review of Systems Constitutional: Changes in sleep EENT: reports: No Symptoms Reported Cardiac: reports: No Symptoms Reported GI: reports: No Symptoms Reported, Diarrhea : reports: No Symptoms Reported Musculoskeletal: reports: Other (wheel chair bound) Integumentary: reports: No Symptoms Reported Neuro: reports: Numbness, Other (wheel chair bound) Endocrine: reports: No Symptoms Reported Hematology: reports: Anemia Psychiatric: reports: Mood/Affect Appropiate, Orientated x3, Anxious Other Systems: Reviewed and Negative Patient History - Patient Medical History Hx Anemia: Yes (USED TO TAKE IRON PILL) Hx Asthma: No Hx Chronic Obstructive Pulmonary Disease (COPD): No Hx Cancer: No Hx Cardiac Disorders: No Hx Congestive Heart Failure: No Hx Hypertension: Yes (ON meds) Hx Hypercholesterolemia: No Hx Pacemaker: No HX Cerebrovascular Accident: No Hx Seizures: No Hx Dementia: No Hx Diabetes: No Hx Gastrointestinal Disorders: No Hx Liver Disease: No Hx Genitourinary Disorders: No Hx Sexually Transmitted Disorders: No Hx Renal Disease (ESRD): No Hx Thyroid Disease: No Hx Human Immunodeficiency Virus (HIV): No (negative, last tested 3 months ago) Hx Hepatitis C: No Hx Depression: Yes (not on meds) Hx Suicide Attempt: No (denies current SI) Hx Bipolar Disorder: No Hx Schizophrenia: No - Patient Surgical History Past Surgical History: Yes Hx Neurologic Surgery: No Hx Cataract Extraction: No Hx Cardiac Surgery: No Hx Lung Surgery: No Hx Breast Surgery: No Hx Breast Biopsy: No Hx Abdominal Surgery: No Hx Appendectomy: No Hx Cholecystectomy: No Hx Genitourinary Surgery: No Hx Section: No Hx Orthopedic Surgery: Yes (right hip replacement 2011, revision 2013, chronic infection) Anesthesia Reaction: No - PPD History Previous Implant?: Yes Documented Results: Negative w/proof Implanted On Prior [facility] Admission?: Yes Date: 11/12/16 Results: 0.0 PPD to be Administered?: Yes - Reproductive History Patient is a Female of Child Bearing Age (11 -55 yrs old): No - Smoking Cessation Smoking history: Current every day smoker Have you smoked in the past 12 months: Yes Aproximately how many cigarettes per day: 20 Hx Chewing Tobacco Use: No Initiated information on smoking cessation: Yes 'Breaking Loose' booklet given: 06/13/18 - Substance & Tx. History Hx Alcohol Use: Yes Hx Substance Use: Yes (crack cocaine) Substance Use Type: Alcohol Hx Substance Use Treatment: Yes - Substances Abused Alcohol Route: Oral Frequency: Daily Amount used: beer 2-3 (6packs), vodka 12 shots Age of first use: 18 Date of Last Use: 06/12/18 Cocaine Route: Smoking Frequency: Daily Amount used: $120.00 Age of first use: 18 Date of Last Use: 06/12/18 Family Disease History - Family Disease History Family Disease History: Heart Disease: Mother (HTN,ALCOHOL,), Sister ( HTN,ALCOHOL), CA: Mother Admission Physical Exam BHS - Vital Signs Vital Signs: Vital Signs - 24 hr 06/13/18 10:27 Temperature 98.5 F Pulse Rate 94 H Respiratory 20 Rate Blood Pressure 134/89 - Physical General Appearance: Yes: Mild Distress, Anxious HEENTM: Yes: Within Normal Limits Respiratory: Yes: No Respiratory Distress, No Accessory Muscle Use Neck: Yes: No masses,lesions,Nodules, Trachea in good position Breast: Yes: Breast Exam Deferred Cardiology: Yes: Regular Rate Abdominal: Yes: Non Tender, Distended Genitourinary: Yes: Within Normal Limits Back: Yes: Normal Inspection Musculoskeletal: Yes: Other (wheel chair bound) Extremities: Yes: Normal Capillary Refill, Non-Tender, Other (healed vertical scar to R hip) Neurological: Yes: Fully Oriented, Alert Integumentary: Yes: Normal Color, Other (fungal infection of b/l toenail) Lymphatic: Yes: Within Normal Limits - Diagnostic (1) Alcohol dependence with uncomplicated withdrawal Current Visit: Yes Status: Acute (2) Nicotine dependence Current Visit: Yes Status: Acute Qualifiers: Nicotine product type: cigarettes Substance use status: uncomplicated Qualified Code(s): F17.210 - Nicotine dependence, cigarettes, uncomplicated (3) Cocaine dependence Current Visit: Yes Status: Chronic Qualifiers: Substance use status: uncomplicated Qualified Code(s): F14.20 - Cocaine dependence, uncomplicated (4) HTN (hypertension) Current Visit: Yes Status: Chronic Qualifiers: Hypertension type: essential hypertension Qualified Code(s): I10 - Essential (primary) hypertension (5) Depression Current Visit: Yes Status: Chronic (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
[2018-06-13] MEDS ORDERED: guaiFENesin/D-METHORPHAN HB 10 ML UNIT-DOSE CUPS PO PRN (14:13)
[2018-06-13] MEDS ORDERED: IBUPROFEN 400 MG TABLET (FP) PO PRN (14:13)
[2018-06-13] MEDS ORDERED: MAGNESIUM HYDROX 2400MG/30ML ORAL SUSPENSION 30 ML CUP PO PRN (14:13)
[2018-06-13] MEDS ORDERED: NICOTINE POLACRILEX 2 MG GUM BUC PRN (14:13)
[2018-06-13] MEDS ORDERED: chlordiazePOXIDE HCL 25 MG CAPSULE PO PRN (14:13)
[2018-06-13] MEDS ORDERED: LOPERAMIDE HCL 2 MG CAPSULE PO PRN (14:13)
[2018-06-13] MEDS ORDERED: hydrOXYzine PAMOATE 50 MG CAPSULE (FP) PO PRN (14:13)
[2018-06-13] MEDS ORDERED: ACETAMINOPHEN 325 MG TABLET (FP) PO PRN (14:13)
[2018-06-13] MEDS ORDERED: P-EPHED 60MG/TRIPROLIDI 2.5MG TABLET PO PRN (14:13)
[2018-06-13] MEDS ORDERED: MENTHOL/PHENOL 1 EACH UD MM PRN (14:13)
[2018-06-13] MEDS ORDERED: MAGNESIUM CITRATE 300 ML BOTTLE PO PRN (14:13)
[2018-06-13] MEDS: chlordiazePOXIDE HCL 25 MG CAPSULE PO SCH ×2 (17:08→22:03)
--- NOTE | 2018-06-13 17:08 | EKG ---
Test Reason : Blood Pressure : / mmHG Vent. Rate : 065 BPM Atrial Rate : 065 BPM P-R Int : 120 ms QRS Dur : 088 ms QT Int : 372 ms P-R-T Axes : 043 063 049 degrees QTc Int : 386 ms NORMAL SINUS RHYTHM NORMAL ECG WHEN COMPARED WITH ECG OF 10-NOV-2016 16:55, NO SIGNIFICANT CHANGE WAS FOUND Confirmed by MD Unger Daniel ([id number]) on 06/13/2018 5:08:15 PM Referred By: ZORAIDA MCMULLEN Confirmed By:Haroldo Unger MD
[2018-06-13 20:48] LABS: URINE APPEARANCE CLEAR; URINE BILIRUBIN NEGATIVE (<2.0 mg/dL); URINE COLOR LTYELLOW; URINE GLUCOSE (UA) NEGATIVE (NEGATIVE); URINE KETONE NEGATIVE (NEGATIVE); URINE NITRITE NEGATIVE (NEGATIVE); URINE PROTEIN NEGATIVE (NEGATIVE); URINE UROBILINOGEN NEGATIVE mg/dL (0.2-1.0)
[2018-06-13 21:13] LABS: URINE LEUK ESTERASE 3+ (NEGATIVE)
[2018-06-13 21:18] LABS: EPI CELLS RARE /HPF (FEW); URINE HYALINE CAST 3 /lpf; URINE MUCUS RARE
[2018-06-13] MEDS: THIAMINE HCL 100 MG TABLET (FP) PO SCH (22:03)
[2018-06-13] MEDS: MELATONIN 5 MG TABLETS PO PRN (22:04)
[2018-06-14] MEDS: chlordiazePOXIDE HCL 25 MG CAPSULE PO SCH ×4 (06:02→22:00)
[2018-06-14 10:08] LABS: HEMATOCRIT 42.2 % (35.4-49); HEMOGLOBIN 13.6 GM/dL (11.7-16.9); MCH 26.6 pg (25.7-33.7); MCHC 32.2 g/dl (32.0-35.9); MEAN CELL VOLUME 82.7 fl (80-96); MEAN PLT VOLUME 10.5 fl (7.5-11.1); PLATELET COUNT 191 K/MM3 (134-434); RBC 5.11 M/mm3 (4.00-5.60); RDW 16.7 % (11.9-15.9); WHITE BLOOD COUNT 5.8 K/mm3 (4.0-10.0)
[2018-06-14] MEDS: PRENATAL VITAMINS W/ FOLIC ACID TABLET (FP) PO SCH (10:23)
[2018-06-14] MEDS: amLODIPine BESYLATE 10 MG TABLET (FP) PO SCH (10:23)
[2018-06-14] MEDS: NICOTINE 14 MG/24 HOURS TOPICAL PATCH TD SCH (10:24)
[2018-06-14 10:51] LABS: ALBUMIN 3.6 g/dl (3.4-5.0); ALK PHOS 90 U/L (45-117); ANION GAP 9 MMOL/L (8-16); BILIRUBIN,TOTAL 0.2 mg/dL (0.2-1); BLOOD UREA NITROGEN 12 mg/dL (7-18); CALCIUM 8.9 mg/dL (8.5-10.1); CHLORIDE 107 mmol/L (98-107); CO2 21 mmol/L (21-32); CREATININE 1.1 mg/dL (0.55-1.3); GLUCOSE,RANDOM 139 mg/dL (74-106); POTASSIUM 4.1 mmol/L (3.5-5.1); SGOT/AST 16 U/L (15-37); SGPT/ALT 15 U/L (13-61); SODIUM 138 mmol/L (136-145); TOT PROT 8.2 g/dl (6.4-8.2)
--- NOTE | 2018-06-14 11:56 | PN ---
[facility] CIWA - CIWA Score Nausea/Vomitin Muscle Tremors: 4-Moderate,w/Arms Extend Anxiety: 4-Mod. Anxious/Guarded Agitation: 4-Moderately Restless Paroxysmal Sweats: 3 Orientation: 0-Oriented Tacttile Disturbances: 0-None Auditory Disturbances: 0-None Visual Disturbances: 0-None Headache: 1-Very Mild CIWA-Ar Total Score: 18 [facility] Progress Note (SOAP) Subjective: Sweating, diarrhea, tremor, interrupted sleep Objective: 06/14/18 11:52 Last Vital Signs Temp Pulse Resp BP Pulse Ox 98.2 F 79 20 123/84 06/14/18 09:57 06/14/18 09:57 06/14/18 09:57 06/14/18 09:57 Laboratory Tests 06/13/18 06/14/18 06/14/18 15:20 07:00 07:00 WBC 5.8 RBC 5.11 Hgb 13.6 Hct 42.2 MCV 82.7 MCH 26.6 MCHC 32.2 RDW 16.7 H Plt Count 191 MPV 10.5 Sodium 138 Potassium 4.1 Chloride 107 Carbon Dioxide 21 Anion Gap 9 BUN 12 Creatinine 1.1 Creat Clearance w eGFR > 60 Random Glucose 139 H Calcium 8.9 Total Bilirubin 0.2 AST 16 ALT 15 Alkaline Phosphatase 90 Total Protein 8.2 Albumin 3.6 Urine Color Ltyellow Urine Appearance Clear Urine pH 5.0 Ur Specific [place] 1.016 Urine Protein Negative Urine Glucose (UA) Negative Urine Ketones Negative Urine Blood Negative Urine Nitrite Negative Urine Bilirubin Negative Urine Urobilinogen Negative Ur Leukocyte Esterase 3+ H Urine WBC (Auto) 24 Urine RBC (Auto) <1 Ur Epithelial Cells Rare Hyaline Casts 3 Urine Mucus Rare Labs reviewed: elevated serum glucose, abnormal UA Assessment: 06/14/18 11:54 Withdrawal symptoms Noted with hyperglycemia and abnormal UA Plan: Continue detox Hyperglycemia: repeat fasting glucose, send HbA1c Abnormal UA: encouraged PO water intake, water pitcher ordered, repeat UA
[2018-06-14] MEDS: MELATONIN 5 MG TABLETS PO PRN (22:00)
[2018-06-14] MEDS: THIAMINE HCL 100 MG TABLET (FP) PO SCH (22:00)
[2018-06-15] MEDS: chlordiazePOXIDE HCL 25 MG CAPSULE PO SCH ×2 (05:56→10:23)
[2018-06-15] MEDS: PRENATAL VITAMINS W/ FOLIC ACID TABLET (FP) PO SCH (10:23)
[2018-06-15] MEDS: amLODIPine BESYLATE 10 MG TABLET (FP) PO SCH (10:23)
[2018-06-15] MEDS: NICOTINE 14 MG/24 HOURS TOPICAL PATCH TD SCH (10:23)
[2018-06-15] MEDS: MAG HYDROX/AL HYDROX/SIMETH 30 ML UNIT-DOSE CUP PO PRN (10:31)
--- NOTE | 2018-06-15 13:13 | PN ---
[facility] CIWA - CIWA Score Nausea/Vomitin-Mild Nausea/No Vomiting Muscle Tremors: 3 Anxiety: 3 Agitation: 3 Paroxysmal Sweats: 3 Orientation: 0-Oriented Tacttile Disturbances: 0-None Auditory Disturbances: 0-None Visual Disturbances: 0-None Headache: 1-Very Mild CIWA-Ar Total Score: 14 [facility] Progress Note (SOAP) Subjective: Diarrhea, interrupted sleep; patient requesting benadryl 50mg for sleep stating melatonin doesn't work and benadryl works for him Objective: 06/15/18 13:11 Last Vital Signs Temp Pulse Resp BP Pulse Ox 98.0 F 87 18 98/67 06/15/18 09:18 06/15/18 09:18 06/15/18 09:18 06/15/18 09:18 Laboratory Tests 06/13/18 06/14/18 06/14/18 15:20 07:00 07:00 WBC 5.8 RBC 5.11 Hgb 13.6 Hct 42.2 MCV 82.7 MCH 26.6 MCHC 32.2 RDW 16.7 H Plt Count 191 MPV 10.5 Sodium Potassium Chloride Carbon Dioxide Anion Gap BUN Creatinine Creat Clearance w eGFR Random Glucose Hemoglobin A1c % Calcium Total Bilirubin AST ALT Alkaline Phosphatase Total Protein Albumin Urine Color Ltyellow Urine Appearance Clear Urine pH 5.0 Ur Specific [place] 1.016 Urine Protein Negative Urine Glucose (UA) Negative Urine Ketones Negative Urine Blood Negative Urine Nitrite Negative Urine Bilirubin Negative Urine Urobilinogen Negative Ur Leukocyte Esterase 3+ H Urine WBC (Auto) 24 Urine RBC (Auto) <1 Ur Epithelial Cells Rare Hyaline Casts 3 Urine Mucus Rare RPR Titer HIV 1&2 Antibody Screen Negative HIV P24 Antigen Negative 06/14/18 06/14/18 06/15/18 07:00 07:00 07:00 WBC RBC Hgb Hct MCV MCH MCHC RDW Plt Count MPV Sodium 138 Potassium 4.1 Chloride 107 Carbon Dioxide 21 Anion Gap 9 BUN 12 Creatinine 1.1 Creat Clearance w eGFR > 60 Random Glucose 139 H Hemoglobin A1c % 5.0 Calcium 8.9 Total Bilirubin 0.2 AST 16 ALT 15 Alkaline Phosphatase 90 Total Protein 8.2 Albumin 3.6 Urine Color Urine Appearance Urine pH Ur Specific [place] Urine Protein Urine Glucose (UA) Urine Ketones Urine Blood Urine Nitrite Urine Bilirubin Urine Urobilinogen Ur Leukocyte Esterase Urine WBC (Auto) Urine RBC (Auto) Ur Epithelial Cells Hyaline Casts Urine Mucus RPR Titer Nonreactive HIV 1&2 Antibody Screen HIV P24 Antigen Labs reviewed: serum glucose 139, abnormal UA Assessment: 06/15/18 13:24 Withdrawal symptoms Noted with hyperglycemia and abnormal UA Plan: Continue detox Hyperglycemia: follow up with fasting glucose Abnormal UA: encouraged PO water hydration, repeat UA already ordered
[2018-06-15] MEDS: chlordiazePOXIDE 5 MG CAPSULE PO SCH ×2 (16:50→22:06)
[2018-06-15] MEDS ORDERED: diphenhydrAMINE HCL 25 MG CAPSULE (FP) PO ONE (21:15)
[2018-06-15] MEDS: THIAMINE HCL 100 MG TABLET (FP) PO SCH (22:06)
[2018-06-15] MEDS: diphenhydrAMINE HCL 50 MG CAPSULE PO PRN (22:07)
[2018-06-16] MEDS: chlordiazePOXIDE 5 MG CAPSULE PO SCH ×2 (05:49→10:27)
[2018-06-16] MEDS: NICOTINE 14 MG/24 HOURS TOPICAL PATCH TD SCH (10:27)
[2018-06-16] MEDS: PRENATAL VITAMINS W/ FOLIC ACID TABLET (FP) PO SCH (10:27)
[2018-06-16] MEDS: amLODIPine BESYLATE 10 MG TABLET (FP) PO SCH (10:27)
[2018-06-16] MEDS: MAG HYDROX/AL HYDROX/SIMETH 30 ML UNIT-DOSE CUP PO PRN (10:35)
--- NOTE | 2018-06-16 14:12 | DS ---
[facility] Detox Discharge Summary Admission Date: 06/13/18 Discharge Date: 06/16/18 - History Present History: Alcohol Dependence, Cocaine Dependence Additional Comments: Patient scheduled for rehab transfer today Pertinent Past History: Denies - Physical Exam Results Vital Signs: Vital Signs Temperature 98.2 F 06/16/18 13:11 Pulse Rate 74 06/16/18 13:11 Respiratory Rate 18 06/16/18 13:11 Blood Pressure 111/79 06/16/18 13:11 O2 Sat by Pulse Oximetry (%) Pertinent Admission Physical Exam Findings: Withdrawal symptoms Laboratory Tests 06/13/18 06/14/18 06/14/18 15:20 07:00 07:00 WBC 5.8 RBC 5.11 Hgb 13.6 Hct 42.2 MCV 82.7 MCH 26.6 MCHC 32.2 RDW 16.7 H Plt Count 191 MPV 10.5 Sodium Potassium Chloride Carbon Dioxide Anion Gap BUN Creatinine Creat Clearance w eGFR Random Glucose Fasting Glucose Hemoglobin A1c % Calcium Total Bilirubin AST ALT Alkaline Phosphatase Total Protein Albumin Urine Color Ltyellow Urine Appearance Clear Urine pH 5.0 Ur Specific [place] 1.016 Urine Protein Negative Urine Glucose (UA) Negative Urine Ketones Negative Urine Blood Negative Urine Nitrite Negative Urine Bilirubin Negative Urine Urobilinogen Negative Ur Leukocyte Esterase 3+ H Urine WBC (Auto) 24 Urine RBC (Auto) <1 Ur Epithelial Cells Rare Hyaline Casts 3 Urine Mucus Rare RPR Titer HIV 1&2 Antibody Screen Negative HIV P24 Antigen Negative 06/14/18 06/14/18 06/15/18 07:00 07:00 07:00 WBC RBC Hgb Hct MCV MCH MCHC RDW Plt Count MPV Sodium 138 Potassium 4.1 Chloride 107 Carbon Dioxide 21 Anion Gap 9 BUN 12 Creatinine 1.1 Creat Clearance w eGFR > 60 Random Glucose 139 H Fasting Glucose 104 Hemoglobin A1c % Calcium 8.9 Total Bilirubin 0.2 AST 16 ALT 15 Alkaline Phosphatase 90 Total Protein 8.2 Albumin 3.6 Urine Color Urine Appearance Urine pH Ur Specific [place] Urine Protein Urine Glucose (UA) Urine Ketones Urine Blood Urine Nitrite Urine Bilirubin Urine Urobilinogen Ur Leukocyte Esterase Urine WBC (Auto) Urine RBC (Auto) Ur Epithelial Cells Hyaline Casts Urine Mucus RPR Titer Nonreactive HIV 1&2 Antibody Screen HIV P24 Antigen 06/15/18 07:00 WBC RBC Hgb Hct MCV MCH MCHC RDW Plt Count MPV Sodium Potassium Chloride Carbon Dioxide Anion Gap BUN Creatinine Creat Clearance w eGFR Random Glucose Fasting Glucose Hemoglobin A1c % 5.0 Calcium Total Bilirubin AST ALT Alkaline Phosphatase Total Protein Albumin Urine Color Urine Appearance Urine pH Ur Specific [place] Urine Protein Urine Glucose (UA) Urine Ketones Urine Blood Urine Nitrite Urine Bilirubin Urine Urobilinogen Ur Leukocyte Esterase Urine WBC (Auto) Urine RBC (Auto) Ur Epithelial Cells Hyaline Casts Urine Mucus RPR Titer HIV 1&2 Antibody Screen HIV P24 Antigen Labs reviewed - Treatment Hospital Course: Detox Protocol Followed, Detoxed Safely, Responded well, Discharged Condition Good, Rehab Referral Accepted - Medication Discharge Medications: Ambulatory Orders Ferrous Sulfate [Feosol] 325 mg PO TID #90 tablet 04/10/16 Ranitidine HCl [Zantac] 150 mg PO BID #60 tablet 04/10/16 Amlodipine Besylate [Norvasc -] 10 mg PO DAILY 07/12/16 Quetiapine Fumarate [Seroquel] 100 tab PO HS #30 tablet 07/14/16 - Diagnosis (1) Hyperglycemia Current Visit: Yes Status: Acute (2) Abnormal finding on urinalysis Current Visit: Yes Status: Acute (3) Alcohol dependence with uncomplicated withdrawal Current Visit: Yes Status: Acute (4) Nicotine dependence Current Visit: Yes Status: Chronic Qualifiers: Nicotine product type: cigarettes Substance use status: uncomplicated Qualified Code(s): F17.210 - Nicotine dependence, cigarettes, uncomplicated (5) Cocaine dependence Current Visit: Yes Status: Chronic Qualifiers: Substance use status: uncomplicated Qualified Code(s): F14.20 - Cocaine dependence, uncomplicated (6) Depression Current Visit: Yes Status: Chronic (7) HTN (hypertension) Current Visit: Yes Status: Chronic Qualifiers: Hypertension type: essential hypertension Qualified Code(s): I10 - Essential (primary) hypertension - AMA Did Patient Leave Against Medical Advice: No (F/U with PCP within 1-2 weeks after rehab)
[2018-06-16] MEDS: chlordiazePOXIDE HCL 10 MG CAPSULE PO SCH ×2 (16:59→22:02)
[2018-06-16 21:58] VITALS: BP 111/79; PULSE 104; TEMP 97.8
[2018-06-16] MEDS: THIAMINE HCL 100 MG TABLET (FP) PO SCH (22:02)
[2018-06-16] MEDS ORDERED: diphenhydrAMINE HCL 25 MG CAPSULE (FP) PO ONE (22:03)
[2018-06-16] MEDS: diphenhydrAMINE HCL 50 MG CAPSULE PO PRN (22:03)
== END 2018-06-16 22:50 | disposition other institution (70) | DRG 774 ==
LOC: YASAS 09:13 → Y3N 13:22
PROC: HZ2ZZZZ Detoxification Services for Substance Abuse Treatment (ICD-10-PCS; principal; 2018-06-13)
DX: F10.230 Alcohol dependence with withdrawal, uncomplicated (principal); F14.20 Cocaine dependence, uncomplicated; F17.210 Nicotine dependence, cigarettes, uncomplicated; F32.9 Major depressive disorder, single episode, unspecified; B18.2 Chronic viral hepatitis C; I10 Essential (primary) hypertension; D64.9 Anemia, unspecified; B35.1 Tinea unguium; R73.9 Hyperglycemia, unspecified; R82.90 Unspecified abnormal findings in urine; Z99.3 Dependence on wheelchair; Z96.641 Presence of right artificial hip joint
CPT/HCPCS: 36415; 80053; 81003; 81015; 82947; 83036; 85027; 86593; 87389; 93005; 93010

== ENCOUNTER 2018-06-16 22:50 | Inpatient (IN) | payer OTHER ==
[~2018-06-16 22:50] MED LIST: MELATONIN 5 MG TABLETS PO PRN
[2018-06-16] MEDS ORDERED: NICOTINE POLACRILEX 2 MG GUM BUC PRN (22:56)
[2018-06-16] MEDS ORDERED: LOPERAMIDE HCL 2 MG CAPSULE PO PRN (22:56)
[2018-06-16] MEDS ORDERED: guaiFENesin/D-METHORPHAN HB 10 ML UNIT-DOSE CUPS PO PRN (22:56)
[2018-06-16] MEDS ORDERED: ACETAMINOPHEN 325 MG TABLET (FP) PO PRN (22:56)
[2018-06-16] MEDS ORDERED: MAGNESIUM CITRATE 300 ML BOTTLE PO PRN (22:56)
[2018-06-16] MEDS ORDERED: P-EPHED 60MG/TRIPROLIDI 2.5MG TABLET PO PRN (22:56)
[2018-06-16] MEDS ORDERED: MAGNESIUM HYDROX 2400MG/30ML ORAL SUSPENSION 30 ML CUP PO PRN (22:56)
[2018-06-16] MEDS ORDERED: MAG HYDROX/AL HYDROX/SIMETH 30 ML UNIT-DOSE CUP PO PRN (22:56)
--- NOTE | 2018-06-16 23:00 | HP ---
[facility] Rehab Assess/Revision - Admission History [facility]hab [facility] Date of Admission to Rehab: 06/16/2018 - Findings Detox History & Physical reviewed: Yes Concur with findings: Yes
[2018-06-17] MEDS: PRENATAL VITAMINS W/ FOLIC ACID TABLET (FP) PO SCH (09:50)
[2018-06-17] MEDS: NICOTINE 14 MG/24 HOURS TOPICAL PATCH TD SCH (09:50)
[2018-06-17] MEDS: amLODIPine BESYLATE 10 MG TABLET (FP) PO SCH (09:50)
[2018-06-17] MEDS ORDERED: NICOTINE 14 MG/24 HOURS TOPICAL PATCH TD SCH (10:00)
--- NOTE | 2018-06-17 10:23 | HP ---
Psychiatrist Admission - Data Date of interview: 06/17/18 Admission source: 3N Identifying data: This is the first [facility] admission for this 52 years old single Black male, father of 4 children, unemployed on SSI, living with friends Medical History: Significant for anemia, hypertension and history of orthosurgery for right hip replacement in 2011 with revision in 2013 and removal of hip hardware because of infection. Smokes cigarettes 1 ppd Psychiatric History: Denies history of previous psychiatric treatment Physical/Sexual Abuse/Trauma History: Denies history of emotional, physical or sexual abuse as well as DV relationship. No [facility] service Additional Comment: Reports history of multiple previous arrests including one felony conviction. Denies being on parole/probation Vital Signs: Vital Signs - 24 hr 06/17/18 06/17/18 06/17/18 00:30 03:27 06:45 Temperature 97.5 F L Pulse Rate 89 Respiratory 16 16 18 Rate Blood Pressure 104/71 Allergies/Adverse Reactions: Allergies Allergy/AdvReac Type Severity Reaction Status Date / Time No Known Allergies Allergy Verified 06/16/18 23:42 Date of last physical exam: 06/13/18 Concur with the findings of this exam: Yes - Substance Abuse/Tx History Hx Alcohol Use: Yes Hx Substance Use: Yes Substance Use Type: Alcohol (Started drinking alcohol at age 18, consumes 12 shots of vodka & 2-3x 6pk of beer daily. Last drank on 06/12/18), Cocaine ( Started smoking crack cocaine at age 18, consumes $120 worth daily. Last smoked on 06/12/18) Hx Substance Use Treatment: Yes (7 previous inpt detox admissions @ [facility]) Mental Status Exam - Mental Status Exam Alert and Oriented to: Time, Place, Person Cognitive Function: Fair Patient Appearance: Well Groomed Mood: Hopeful, Euthymic Patient Behavior: Cooperative Speech Pattern: Clear Voice Loudness: Normal Thought Process: Intact, Goal Oriented Thought Disorder: Not Present Hallucinations: Denies Suicidal Ideation: Denies Homicidal Ideation: Denies Insight/Judgement: Fair Sleep: Poorly Appetite: Good Muscle strength/Tone: Normal Gait/Station: Other (Uses wheelchair as ambulatory aid) Psychiatric Findings - Problem List ([place] 1, 2,3) (1) Alcohol dependence Current Visit: No Status: Acute (2) Cocaine dependence Current Visit: No Status: Acute Qualifiers: Substance use status: uncomplicated Qualified Code(s): F14.20 - Cocaine dependence, uncomplicated (3) Nicotine dependence Current Visit: No Status: Chronic Qualifiers: Nicotine product type: cigarettes Substance use status: uncomplicated Qualified Code(s): F17.210 - Nicotine dependence, cigarettes, uncomplicated (4) Substance-induced sleep disorder Current Visit: Yes Status: Acute (5) HTN (hypertension) Current Visit: No Status: Chronic Qualifiers: Hypertension type: essential hypertension Qualified Code(s): I10 - Essential (primary) hypertension (6) Status post right hip replacement Current Visit: No Status: Chronic (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 2) Monitor progress
[2018-06-17] MEDS: IBUPROFEN 400 MG TABLET (FP) PO PRN (13:54)
--- NOTE | 2018-06-17 17:42 | PN ---
S Progress Note Note: Vital Signs Temperature 97.5 F L 06/17/18 06:45 Pulse Rate 101 H 06/17/18 09:20 Respiratory Rate 18 06/17/18 06:45 Blood Pressure 107/67 06/17/18 09:20 O2 Sat by Pulse Oximetry (%) c/o of excessive abdominal gas simethicone prn continue to monitor
[2018-06-17] MEDS: SIMETHICONE 80 MG TAB.CHEW (FP) PO PRN (17:50)
[2018-06-17] MEDS: THIAMINE HCL 100 MG TABLET (FP) PO SCH (21:42)
[2018-06-17] MEDS: MELATONIN 5 MG TABLETS PO PRN (21:43)
[2018-06-18] MEDS: SIMETHICONE 80 MG TAB.CHEW (FP) PO PRN (06:22)
[2018-06-18] MEDS: NICOTINE 14 MG/24 HOURS TOPICAL PATCH TD SCH (09:39)
[2018-06-18] MEDS: PRENATAL VITAMINS W/ FOLIC ACID TABLET (FP) PO SCH (09:39)
[2018-06-18] MEDS: amLODIPine BESYLATE 10 MG TABLET (FP) PO SCH (09:39)
[2018-06-18] MEDS: IBUPROFEN 400 MG TABLET (FP) PO PRN ×2 (12:28→21:16)
[2018-06-18] MEDS: THIAMINE HCL 100 MG TABLET (FP) PO SCH (21:15)
[2018-06-18] MEDS: hydrOXYzine PAMOATE 50 MG CAPSULE (FP) PO PRN (21:18)
[2018-06-18] MEDS: MELATONIN 5 MG TABLETS PO PRN (21:18)
[2018-06-19 06:45] VITALS: TEMP 97.6
[2018-06-19] MEDS: NICOTINE 14 MG/24 HOURS TOPICAL PATCH TD SCH (09:22)
[2018-06-19] MEDS: amLODIPine BESYLATE 10 MG TABLET (FP) PO SCH (09:23)
[2018-06-19] MEDS: IBUPROFEN 400 MG TABLET (FP) PO PRN (09:23)
[2018-06-19] MEDS: PRENATAL VITAMINS W/ FOLIC ACID TABLET (FP) PO SCH (09:23)
[2018-06-19] MEDS: SIMETHICONE 80 MG TAB.CHEW (FP) PO PRN (20:22)
[2018-06-19] MEDS: MELATONIN 5 MG TABLETS PO PRN (21:51)
[2018-06-19] MEDS: THIAMINE HCL 100 MG TABLET (FP) PO SCH (21:51)
[2018-06-19] MEDS: hydrOXYzine PAMOATE 50 MG CAPSULE (FP) PO PRN (21:52)
[2018-06-20] MEDS: IBUPROFEN 400 MG TABLET (FP) PO PRN (05:50)
[2018-06-20] MEDS: MENTHOL/PHENOL 1 EACH UD MM PRN ×3 (05:51→14:22)
[2018-06-20] MEDS: amLODIPine BESYLATE 10 MG TABLET (FP) PO SCH (09:34)
[2018-06-20] MEDS: NICOTINE 14 MG/24 HOURS TOPICAL PATCH TD SCH (09:35)
[2018-06-20] MEDS: PRENATAL VITAMINS W/ FOLIC ACID TABLET (FP) PO SCH (09:35)
[2018-06-20] MEDS: SIMETHICONE 80 MG TAB.CHEW (FP) PO PRN (20:21)
[2018-06-20] MEDS: THIAMINE HCL 100 MG TABLET (FP) PO SCH (21:28)
[2018-06-20] MEDS: MELATONIN 5 MG TABLETS PO PRN (21:28)
[2018-06-20] MEDS: hydrOXYzine PAMOATE 50 MG CAPSULE (FP) PO PRN (21:28)
[2018-06-21 07:33] VITALS: BP 110/73; PULSE 74
[2018-06-21] MEDS ORDERED: PT OWN MED DRAWER 7, Y5N ONE (08:34)
[2018-06-21] MEDS: NICOTINE 14 MG/24 HOURS TOPICAL PATCH TD SCH (09:15)
[2018-06-21] MEDS: amLODIPine BESYLATE 10 MG TABLET (FP) PO SCH (09:15)
[2018-06-21] MEDS: PRENATAL VITAMINS W/ FOLIC ACID TABLET (FP) PO SCH (09:15)
== END 2018-06-21 09:30 | disposition left against medical advice (07) | DRG 770 ==
LOC: YASAS 22:50 → Y3W 22:51
PROVIDERS: ADMIT Psychiatry & Neurology Psychiatry; ATTEND Psychiatry & Neurology Psychiatry
PROC: HZ42ZZZ Group Counseling for Substance Abuse Treatment, Cognitive-Behavioral (ICD-10-PCS; principal; 2018-06-16)
DX: F10.20 Alcohol dependence, uncomplicated (principal); F14.20 Cocaine dependence, uncomplicated; F17.210 Nicotine dependence, cigarettes, uncomplicated; F19.282 Other psychoactive substance dependence with psychoactive substance-induced sleep disorder; I10 Essential (primary) hypertension; R14.0 Abdominal distension (gaseous); Z96.641 Presence of right artificial hip joint

== ENCOUNTER 2019-10-02 09:45 | Inpatient (IN) | payer OTHER ==
[2019-10-02 10:34] VITALS: BMI 29.0
--- NOTE | 2019-10-02 12:30 | HP ---
CIWA Score Nausea/Vomitin Muscle Tremors: 3 Anxiety: 2 Agitation: 2 Paroxysmal Sweats: 2 Orientation: 0-Oriented Tacttile Disturbances: 1-Very Mild Itch/Numbness Auditory Disturbances: 0-None Visual Disturbances: 0-None Headache: 1-Very Mild CIWA-Ar Total Score: 14 - Admission Criteria OASAS Guidelines: Admission for Medically Managed Detox: Requires at least one of the followin. CIWA greater than 12 2. Seizures within the past 24 hours 3. Delirium tremens within the past 24 hours 4. Hallucinations within the past 24 hours 5. Acute intervention needed for co occurring medical disorder 6. Acute intervention needed for co occurring psychiatric disorder 7. Severe withdrawal that cannot be handled at a lower level of care (continued vomiting, continued diarrhea, abnormal vital signs) requiring intravenous medication and/or fluids 8. Patient presents the following: CIWA greater than 12 Admission Criteria Met: Admission criteria met Admitting History and Physical - Smoking History Smoking history: Current every day smoker Have you smoked in the past 12 months: Yes Aproximately how many cigarettes per day: 20 - Alcohol/Substance Use Hx Alcohol Use: Yes Admission ROS S - HPI Chief Complaint: Withdrawal sx Allergies/Adverse Reactions: Allergies Allergy/AdvReac Type Severity Reaction Status Date / Time No Known Allergies Allergy Verified 10/02/19 10:28 History of Present Illness: Patient is a 52 y/o male with a long standing hx of alcohol addiction presents for detox, his last admission nhere was from 06/13-06/17/18. He denies further treatments since then. He denies alcohol related seizures or blackouts. - Ebola screening Have you traveled outside of the country in the last 21 days: No (N) Have you had contact with anyone from an Ebola affected area: No Have you been sick,other than usual withdrawal symptoms: No Do you have a fever: No - Review of Systems Constitutional: Chills, Loss of Appetite, Changes in sleep, Unintentional Wgt. Loss EENT: reports: Nose Congestion Respiratory: reports: No Symptoms reported Cardiac: reports: No Symptoms Reported GI: reports: Diarrhea, Nausea, Poor Appetite, Poor Fluid Intake, Abdominal cramping : reports: No Symptoms Reported Musculoskeletal: reports: Back Pain, Joint Pain, Muscle Pain, Muscle Weakness Integumentary: reports: Sweating Neuro: reports: Headache, Numbness, Tremors, Unsteady Gait Endocrine: reports: No Symptoms Reported Hematology: reports: Anemia Psychiatric: reports: Orientated x3, Depressed Other Systems: Reviewed and Negative Patient History - Patient Medical History Hx Anemia: Yes Hx Asthma: No Hx Chronic Obstructive Pulmonary Disease (COPD): No Hx Cancer: No Hx Cardiac Disorders: No Hx Congestive Heart Failure: No Hx Hypertension: Yes Hx Hypercholesterolemia: No Hx Pacemaker: No HX Cerebrovascular Accident: No Hx Seizures: No Hx Dementia: No Hx Diabetes: No Hx Gastrointestinal Disorders: Yes (GERD) Hx Liver Disease: No Hx Genitourinary Disorders: No Hx Sexually Transmitted Disorders: No Hx Renal Disease (ESRD): No Hx Thyroid Disease: No Hx Human Immunodeficiency Virus (HIV): No Hx Hepatitis C: No Hx Depression: Yes Hx Suicide Attempt: No Hx Bipolar Disorder: No Hx Schizophrenia: No - Patient Surgical History Past Surgical History: Yes Hx Neurologic Surgery: No Hx Cataract Extraction: No Hx Cardiac Surgery: No Hx Lung Surgery: No Hx Breast Surgery: No Hx Breast Biopsy: No Hx Abdominal Surgery: No Hx Appendectomy: No Hx Cholecystectomy: No Hx Genitourinary Surgery: No Hx Section: No Hx Orthopedic Surgery: Yes (right hip replacement 2011, revision 2013, chronic infection) Anesthesia Reaction: No - PPD History Previous Implant?: Yes Documented Results: Negative w/proof Implanted On Prior [facility] Admission?: Yes Date: 06/15/18 Results: 0mm PPD to be Administered?: Yes - Smoking Cessation Smoking history: Current every day smoker Have you smoked in the past 12 months: Yes Aproximately how many cigarettes per day: 20 Hx Chewing Tobacco Use: No Initiated information on smoking cessation: Yes 'Breaking Loose' booklet given: 10/02/19 - Substances abused Alcohol Substance route: Oral Frequency: Daily Amount used: 2 (1/2 pints)vodka/day Age of first use: 22 Date of last use: 10/01/19 Heroin Substance route: Inhalation Frequency: Daily Amount used: 2 bags/day Age of first use: 53 Date of last use: 09/30/19 Cocaine Substance route: Smoking Frequency: Daily Amount used: $100/day Age of first use: 22 Date of last use: 10/01/19 Admission Physical Exam [facility] - Vital Signs Vital Signs: Vital Signs - 24 hr 10/02/19 10:30 Temperature 98.6 F Pulse Rate 77 Respiratory 14 Rate Blood Pressure 145/95 - Physical General Appearance: Yes: No Apparent Distress HEENTM: Yes: Hearing grossly Normal, Normocephalic, Normal Voice Respiratory: Yes: Chest Non-Tender, Lungs Clear, Normal Breath Sounds, No Respiratory Distress, No Accessory Muscle Use Neck: Yes: No masses,lesions,Nodules, Supple Breast: Yes: Breast Exam Deferred Cardiology: Yes: Regular Rhythm, Regular Rate, S1, S2 Abdominal: Yes: Normal Bowel Sounds, Non Tender, Soft Genitourinary: Yes: Within Normal Limits Back: Yes: Normal Inspection Musculoskeletal: Yes: Back pain, Muscle Pain, Muscle weakness, Other (right hip pain) Extremities: Yes: Tremors Neurological: Yes: servicer travel trailers II-XII NML intact, Fully Oriented, Normal Mood/Affect, Normal Response Integumentary: Yes: Clammy, Other (right hip well healed surgical scar) Lymphatic: Yes: Within Normal Limits - Diagnostic (1) Alcohol dependence with uncomplicated withdrawal Current Visit: Yes Status: Acute (2) Cocaine dependence Current Visit: Yes Status: Acute Qualifiers: Substance use status: uncomplicated Qualified Code(s): F14.20 - Cocaine dependence, uncomplicated (3) HTN (hypertension) Current Visit: Yes Status: Chronic Qualifiers: Hypertension type: essential hypertension Qualified Code(s): I10 - Essential (primary) hypertension (4) Nicotine dependence Current Visit: Yes Status: Chronic Qualifiers: Nicotine product type: cigarettes Substance use status: uncomplicated Qualified Code(s): F17.210 - Nicotine dependence, cigarettes, uncomplicated (5) Status post right hip replacement Current Visit: Yes Status: Chronic (6) Osteoarthritis Current Visit: Yes Status: Acute Qualifiers: Osteoarthritis location: hip Osteoarthritis type: primary Laterality: right Qualified Code(s): M16.11 - Unilateral primary osteoarthritis, right hip Cleared for Admission [facility] - Detox or Rehab [facility] Level of Care: Medically Managed Detox Regimen/Protocol: Librium Claeared for Rehab Admission: No Breathalyzer - Breathalyzer Breathalyzer: 0 Urine Drug Screen - Test Device Lot number: [id number] Expiration date: 04/20/21 - Control Is test valid?: Yes - Results Drug screen NEGATIVE: No Urine drug screen results: [facility]-Cocaine Inpatient Rehab Admission - Rehab Decision to Admit Inpatient rehab admission?: No
[2019-10-02] MEDS ORDERED: chlordiazePOXIDE HCL 10 MG CAPSULE PO PRN (12:37)
[2019-10-02] MEDS ORDERED: METHOCARBAMOL 500 MG TABLET PO PRN (12:37)
[2019-10-02] MEDS ORDERED: MAGNESIUM HYDROX 2400MG/30ML ORAL SUSPENSION 30 ML CUP PO PRN (12:37)
[2019-10-02] MEDS ORDERED: IBUPROFEN 400 MG TABLET (FP) PO PRN (12:37)
[2019-10-02] MEDS ORDERED: ACETAMINOPHEN 325 MG TABLET (FP) PO PRN ×2 (12:37)
[2019-10-02] MEDS ORDERED: BISMUTH SUBSALICYLATE 524 MG/30 ML UD PO PRN (12:37)
[2019-10-02] MEDS ORDERED: MELATONIN 5 MG TABLETS PO PRN (12:37)
[2019-10-02] MEDS ORDERED: hydrOXYzine PAMOATE 25 MG CAPSULE (FP) PO PRN (12:37)
[2019-10-02] MEDS ORDERED: MAG HYDROX/AL HYDROX/SIMETH 30 ML UNIT-DOSE CUP PO PRN (12:37)
[2019-10-02] MEDS ORDERED: NICOTINE POLACRILEX 2 MG GUM BUC PRN (12:37)
[2019-10-02] MEDS ORDERED: MAGNESIUM CITRATE 300 ML BOTTLE PO PRN (12:37)
[2019-10-02] MEDS ORDERED: MENTHOL/PHENOL 1 EACH UD MM PRN (12:37)
[2019-10-02] MEDS: chlordiazePOXIDE HCL 25 MG CAPSULE PO SCH ×2 (14:04→22:05)
[2019-10-02] MEDS: NICOTINE 14 MG/24 HOURS TOPICAL PATCH TD SCH (14:05)
[2019-10-02] MEDS ORDERED: QUEtiapine FUMARATE 100 MG TABLET (FP) PO ONE (21:00)
[2019-10-02] MEDS: THIAMINE HCL 100 MG TABLET (FP) PO SCH (22:05)
[2019-10-03] MEDS: chlordiazePOXIDE HCL 25 MG CAPSULE PO SCH ×3 (06:23→22:16)
[2019-10-03] MEDS: NICOTINE 14 MG/24 HOURS TOPICAL PATCH TD SCH (09:46)
[2019-10-03] MEDS: amLODIPine BESYLATE 10 MG TABLET (FP) PO SCH (09:46)
[2019-10-03] MEDS: PRENATAL VITAMINS W/ FOLIC ACID TABLET (FP) PO SCH (09:46)
[2019-10-03 09:54] LABS: HEMOGLOBIN 12.4 GM/dL (11.7-16.9); MCHC 32.8 g/dl (32.0-35.9); MEAN CELL VOLUME 76.2 fl (80-96); MEAN PLT VOLUME 10.2 fl (7.5-11.1); PLATELET COUNT 180 K/MM3 (134-434); RBC 4.98 M/mm3 (4.00-5.60); RDW 20.8 % (11.9-15.9); WHITE BLOOD COUNT 5.5 K/mm3 (4.0-10.0)
--- NOTE | 2019-10-03 11:01 | PN ---
S CIWA - CIWA Score Nausea/Vomitin-No Nausea/No Vomiting Muscle Tremors: 3 Anxiety: 2 Agitation: 3 Paroxysmal Sweats: 3 Orientation: 0-Oriented Tacttile Disturbances: 0-None Auditory Disturbances: 0-None Visual Disturbances: 0-None Headache: 0-None Present CIWA-Ar Total Score: 11 S Progress Note (SOAP) Subjective: diarrhea sweats irritable agitation Objective: 10/03/19 11:00 Vital Signs Temperature 97.7 F 10/03/19 10:03 Pulse Rate 71 10/03/19 10:03 Respiratory Rate 17 10/03/19 10:03 Blood Pressure 133/68 10/03/19 10:03 O2 Sat by Pulse Oximetry (%) Laboratory Tests 10/03/19 08:00 WBC 5.5 RBC 4.98 Hgb 12.4 Hct 38.0 MCV 76.2 L MCH 25.0 L MCHC 32.8 RDW 20.8 H Plt Count 180 MPV 10.2 rest of labs pending aaox3 ambulating no acute distress Assessment: 10/03/19 11:01 withdrawals Plan: continue detox increase fluids
[2019-10-03 11:10] LABS: ALBUMIN 3.4 g/dl (3.4-5.0); BILIRUBIN,TOTAL 0.4 mg/dL (0.2-1); BLOOD UREA NITROGEN 12.3 mg/dL (7-18); CALCIUM 8.9 mg/dL (8.5-10.1); CREATININE 0.9 mg/dL (0.55-1.3); POTASSIUM 4.2 mmol/L (3.5-5.1); TOT PROT 7.7 g/dl (6.4-8.2)
[2019-10-03] MEDS ORDERED: FLU VACCINE QUAD 60 MCG/0.5 ML (MDV 19-20) IM ONE (12:00)
[2019-10-03] MEDS ORDERED: PNEUMOC 13-VAL CONJ-DIP CRM/PF 0.5 ML DISP.SYRIN IM ONE (12:00)
--- NOTE | 2019-10-03 17:18 | CONSULT ---
[facility] Psychiatric Consult - Data Date of interview: 10/03/19 Admission source: [facility] Identifying data: Patient is approached, at bedside, by this policy writer for the psychiatric evaluation requested by medical provider. Mr Barnes declines. " You are the psychiatrist. Never mind, I am fine. I don't need a psychiatrist. Thanks." Nursing staff is made aware.
[2019-10-03 21:53] VITALS: TEMP 98.1
[2019-10-03] MEDS: THIAMINE HCL 100 MG TABLET (FP) PO SCH (22:16)
[2019-10-04] MEDS ORDERED: chlordiazePOXIDE 5 MG CAPSULE PO SCH (05:00)
[2019-10-04 08:49] VITALS: BP 115/71; PULSE 78
[2019-10-04] MEDS: amLODIPine BESYLATE 10 MG TABLET (FP) PO SCH (10:48)
[2019-10-04] MEDS: NICOTINE 14 MG/24 HOURS TOPICAL PATCH TD SCH (10:48)
[2019-10-04] MEDS: PRENATAL VITAMINS W/ FOLIC ACID TABLET (FP) PO SCH (10:48)
--- NOTE | 2019-10-04 10:55 | PN ---
S CIWA - CIWA Score Nausea/Vomitin-No Nausea/No Vomiting Muscle Tremors: 3 Anxiety: 1-Mildly Anxious Agitation: 2 Paroxysmal Sweats: 1-Minimal Palms Moist Orientation: 0-Oriented Tacttile Disturbances: 0-None Auditory Disturbances: 0-None Visual Disturbances: 0-None Headache: 0-None Present CIWA-Ar Total Score: 7 BHS Progress Note (SOAP) Subjective: insomnia; the melatonin is not working interrupted sleep sweats Objective: 10/04/19 10:54 Vital Signs Temperature 98.1 F 10/04/19 05:15 Pulse Rate 78 10/04/19 05:15 Respiratory Rate 10/04/19 05:15 Blood Pressure 115/71 10/04/19 05:15 O2 Sat by Pulse Oximetry (%) Laboratory Tests 10/03/19 10/03/19 10/03/19 08:00 08:00 08:00 WBC 5.5 RBC 4.98 Hgb 12.4 Hct 38.0 MCV 76.2 L MCH 25.0 L MCHC 32.8 RDW 20.8 H Plt Count 180 MPV 10.2 Sodium 140 Potassium 4.2 Chloride 110 H Carbon Dioxide 25 Anion Gap 5 L BUN 12.3 Creatinine 0.9 Est GFR (CKD-EPI)AfAm 112.62 Est GFR (CKD-EPI)NonAf 97.17 Random Glucose 84 Calcium 8.9 Total Bilirubin 0.4 AST 16 ALT 16 Alkaline Phosphatase 74 Total Protein 7.7 Albumin 3.4 RPR Titer Nonreactive aaox3 ambulating no acute distress Assessment: 10/04/19 10:54 withdrawals Plan: continue detox trazadone 50mg qhs while in detox increase fluids
--- NOTE | 2019-10-04 12:54 | PN ---
[facility] Progress Note Note: pt states he needs to leave now and has a family emergency. pt was encouraged to stay to complete his detox and asked what emergency he states a in the family. pt was advised he is still shaky and is at risk of relapse, seizure, Dt , OD, and or loss, pt chose to leave AMA.
--- NOTE | 2019-10-04 12:55 | DS ---
[facility] Detox Discharge Summary Admission Date: 10/02/19 - History Present History: Alcohol Dependence, Cocaine Dependence - Physical Exam Results Vital Signs: Vital Signs Temperature 98.1 F 10/04/19 05:15 Pulse Rate 78 10/04/19 05:15 Respiratory Rate 10/04/19 05:15 Blood Pressure 115/71 10/04/19 05:15 O2 Sat by Pulse Oximetry (%) Pertinent Admission Physical Exam Findings: Vital Signs Temperature 98.1 F 10/04/19 05:15 Pulse Rate 78 10/04/19 05:15 Respiratory Rate 10/04/19 05:15 Blood Pressure 115/71 10/04/19 05:15 O2 Sat by Pulse Oximetry (%) Laboratory Tests 10/03/19 10/03/19 10/03/19 08:00 08:00 08:00 WBC 5.5 RBC 4.98 Hgb 12.4 Hct 38.0 MCV 76.2 L MCH 25.0 L MCHC 32.8 RDW 20.8 H Plt Count 180 MPV 10.2 Sodium 140 Potassium 4.2 Chloride 110 H Carbon Dioxide 25 Anion Gap 5 L BUN 12.3 Creatinine 0.9 Est GFR (CKD-EPI)AfAm 112.62 Est GFR (CKD-EPI)NonAf 97.17 Random Glucose 84 Calcium 8.9 Total Bilirubin 0.4 AST 16 ALT 16 Alkaline Phosphatase 74 Total Protein 7.7 Albumin 3.4 RPR Titer Nonreactive aaox3 ambulating no acute distress - Treatment Hospital Course: Rehab Referral Accepted - Medication Discharge Medications: Ambulatory Orders Ferrous Sulfate [Feosol] 325 mg PO TID #90 tablet 04/10/16 Ranitidine HCl [Zantac] 150 mg PO BID #60 tablet 04/10/16 Amlodipine Besylate [Norvasc -] 10 mg PO DAILY 07/12/16 Quetiapine Fumarate [Seroquel] 100 tab PO HS #30 tablet 07/14/16 - Diagnosis (1) Alcohol dependence with uncomplicated withdrawal Current Visit: Yes Status: Chronic (2) Cocaine dependence Current Visit: Yes Status: Chronic Qualifiers: Substance use status: uncomplicated Qualified Code(s): F14.20 - Cocaine dependence, uncomplicated (3) Osteoarthritis Current Visit: Yes Status: Acute Qualifiers: Osteoarthritis location: hip Osteoarthritis type: primary Laterality: right Qualified Code(s): M16.11 - Unilateral primary osteoarthritis, right hip (4) HTN (hypertension) Current Visit: Yes Status: Chronic Qualifiers: Hypertension type: essential hypertension Qualified Code(s): I10 - Essential (primary) hypertension (5) Nicotine dependence Current Visit: Yes Status: Chronic Qualifiers: Nicotine product type: cigarettes Substance use status: uncomplicated Qualified Code(s): F17.210 - Nicotine dependence, cigarettes, uncomplicated (6) Status post right hip replacement Current Visit: Yes Status: Chronic (7) Drug-induced mood disorder Current Visit: No Status: Acute (8) Chronic right hip pain Current Visit: No Status: Chronic (9) Depression Current Visit: No Status: Chronic (10) Depressive disorder Current Visit: No Status: Suspected - AMA Did Patient Leave Against Medical Advice: Yes
[2019-10-04] MEDS ORDERED: traZODone HCL 50 MG TABLET (FP) PO SCH (22:00)
[2019-10-05] MEDS ORDERED: chlordiazePOXIDE HCL 10 MG CAPSULE PO PRN
[2019-10-05] MEDS ORDERED: chlordiazePOXIDE HCL 10 MG CAPSULE PO SCH (05:00)
[2019-10-06] MEDS ORDERED: chlordiazePOXIDE HCL 10 MG CAPSULE PO ONE (05:00)
== END 2019-10-03 13:33 | disposition left against medical advice (07) | DRG 770 ==
LOC: YASAS 09:45 → Y6N 12:50
PROVIDERS: ADMIT Allergy & Immunology; ATTEND Allergy & Immunology
PROC: HZ2ZZZZ Detoxification Services for Substance Abuse Treatment (ICD-10-PCS; principal; 2019-10-02)
DX: F10.230 Alcohol dependence with withdrawal, uncomplicated (principal); F14.20 Cocaine dependence, uncomplicated; F17.210 Nicotine dependence, cigarettes, uncomplicated; F19.24 Other psychoactive substance dependence with psychoactive substance-induced mood disorder; F32.9 Major depressive disorder, single episode, unspecified; I10 Essential (primary) hypertension; M16.11 Unilateral primary osteoarthritis, right hip; M25.551 Pain in right hip; G89.29 Other chronic pain; K21.9 Gastro-esophageal reflux disease without esophagitis; Z96.641 Presence of right artificial hip joint
CPT/HCPCS: 36415; 80053; 85027; 86593